=== PATIENT | female | born 1950 | race Caucasian/White ===

== ENCOUNTER 2020-06-06 06:24 | Inpatient (IN) ==
--- NOTE | 2020-05-18 12:20 | PAT Medication Instructions ---
Medication Instructions Date of Service May 18, 2020 Home Medications atorvastatin [Lipitor] 20 mg PO QPM benazepril-hydrochlorothiazide 1 tab PO QPM [Glucosamine Chondroitin] 2 cap PO QAM raloxifene 60 mg PO QPM STOP taking 2 weeks before surgery If surgery is within 2 weeks, stop taking as soon as possible. [Glucosamine Chondroitin] 2 cap PO QAM Take evening before surgery atorvastatin [Lipitor] 20 mg PO QPM benazepril-hydrochlorothiazide 1 tab PO QPM raloxifene 60 mg PO QPM NOTHING TO EAT OR DRINK AFTER MIDNIGHT Other Notes If you have any questions please call us at [phone] or [phone] or [phone] or [phone]
--- NOTE | 2020-05-18 14:05 | Anesthesiology Consultation ---
Date of Service May 18, 2020 Assessment & Plan (1) Encounter for pre-operative examination: COVID Status: As of 05/18 assessment, patient denies travel to endemic area, known exposure/sick contacts, or symptoms of COVID19. Patient instructed that they and their household members must follow strict social distancing guidelines, wear a mask in public and avoid travel for 14 days prior to surgery. Preoperative COVID19 [place] prior to surgery [place] [facility] [place] made aware to self-isolate as much as possible between COVID testing and surgery. Chart Review Chart Review: Acceptable Risk for Surgery (pending surgeon ordered PCP clearance 05/19) and Patient seen in Pre Admission Testing Teaching & Discussion Instructed NPO after midnight before surgery, except medications with 15 cc of water. Medication instructions provided according to the PAT guidelines. History Surgery Operation Date: 06/06/20 09:00 Proposed Procedures p Left Anterior Total Hip Arthroplasty - Carson Lazaro DO Height/Weight Height: 5 ft 10 in Weight: 72 kg Allergies Allergy/AdvReac Type Severity Reaction Status Date / Time No Known Allergies Allergy Unknown NONE Verified 05/11/20 09:35 Medications Home Medications Medication Instructions Recorded Confirmed Last Taken atorvastatin [Lipitor] 20 mg PO QPM 05/11/20 05/11/20 Unknown benazepril-hydrochlorothiazide 1 tab PO QPM 05/11/20 05/11/20 Unknown glucos sul [id number] 2 cap PO QAM 05/11/20 05/11/20 Unknown [Glucosamine Chondroitin] raloxifene 60 mg PO QPM 05/11/20 05/11/20 Unknown Past Medical History Medical History Hx of migraines Hyperlipidemia Hypertension Osteoarthritis Exercise / Class Metabolic Activity II 4-5 Yardwork/Stairs/Walk up hill (Denies Cp or SOB with 1 FOS) Past Family History Family History Mother Family history of diabetes mellitus Past Surgical History Surgical History H/O total hysterectomy History of colonoscopy History of right hip replacement 2011 Nausea and vomiting after administration of anesthetic agent Past Anesthesia History No Hx of Anesthesia Complications (other than PONV) and No Family Hx of Anesthesia Complications History of PONV No Hx of Motion Sickness and History of PONV Social History Smoking Status: Never smoker Do You Dip or Chew Tobacco: No Hx Alcohol Use: No Hx Substance Use: No Review of Systems Pt denies any recent chest pain, shortness of breath, palpitations, cough, fever, URI, or uncontrolled acid reflux. Physical Exam Vital Signs BP: 136/78 P: 67bpm SPO2: 99% RA T: 98.3 F R: 12 ENMT Mouth: + chipped teeth (back left filling fell out); no dental restorations and no loose teeth Thyromental Distance: > or= 3.5 Finger Breadths (3.5) Mallampati Class: I Neck normal visual inspection; neck extension not limited Respiratory normal respiratory effort Auscultation: lungs clear to auscultation bilaterally Cardiovascular Rate/Rhythm: regular rate and regular rhythm Heart Sounds: no murmur Extremities: no edema Testing Laboratory Results 05/18/20 13:53 05/18/20 13:53 PT 10.7 Seconds (9.0-12.0) 05/18/20 13:53 INR 1.0 (0.9-1.1) 05/18/20 13:53 APTT 28.7 Seconds (21.0-31.0) 05/18/20 13:53 Hemoglobin A1c 6.3 % (4.5-5.6) H 05/18/20 13:53 Urine Color Yellow 05/18/20 13:53 Urine Appearance Clear (Clear) 05/18/20 13:53 Urine pH 5.0 (4.5-7.5) 05/18/20 13:53 Ur Specific [place] 1.016 (1.000-1.030) 05/18/20 13:53 Urine Protein Negative (Negative) 05/18/20 13:53 Urine Glucose (UA) Negative (Negative) 05/18/20 13:53 Urine Ketones Negative (Negative) 05/18/20 13:53 Urine Nitrite Negative (Negative) 05/18/20 13:53 Ur Leukocyte Esterase Negative (Negative) 05/18/20 13:53 Blood Type O Positive 05/18/20 13:53 Antibody Screen NEGATIVE 05/18/20 13:53 Electrocardiogram Date: 05/18/20 Findings: + NSR @ (62bpm) No significant change from 2008 EKG. Chest X-Ray Date: 05/18/20 FINDINGS: Cardiomediastinal and hilar silhouettes are within normal limits. No pneumothorax, pleural effusion, airspace consolidation or overt pulmonary edema. Bones of the chest appear grossly intact. Mild convex left curvature of the lumbar spine. IMPRESSION: No acute process.
--- NOTE | 2020-05-18 14:09 | Electrocardiogram Report ---
Test Reason : Blood Pressure : / mmHG Vent. Rate : 062 BPM Atrial Rate : 062 BPM P-R Int : 152 ms QRS Dur : 092 ms QT Int : 404 ms P-R-T Axes : 071 060 068 degrees QTc Int : 410 ms Normal sinus rhythm Normal ECG When compared with ECG of 01-AUG-2009 13:53, No significant change was found Confirmed by Tyrone Contreras ([id number]) on 05/18/2020 2:09:03 PM Referred By: Carson Lazaro Confirmed By:Tyrone Contreras
[2020-05-18 14:27] LABS: Basophils # (auto) 0.04 K/uL (0-0.2); Basophils % (auto) 0.7 %; Eosinophils % (auto) 6.7 %; Hematocrit (blood only) 39.8 % (37-47); Hemoglobin 13.1 g/dL (12.0-16.0); Immature Granulocytes # (auto) 0.01 K/uL (0.00-0.02); Immature Granulocytes % (auto) 0.2 %; Lymphocytes % (auto) 26.8 %; Mean Corpuscular Hemoglobin 30.1 pg (25-34); Mean Corpuscular Hgb Conc 32.9 g/dL (32-36); Mean Corpuscular Volume 91.5 fL (80-100); Mean Platelet Volume 9.3 fL (7.4-10.4); Monocytes # (auto) 0.36 K/uL (0.11-0.59); Neutrophils # (auto) 3.57 K/uL (1.4-6.5); Neutrophils % (auto) 59.6 %; Platelet Count 443 K/uL (130-400); RDW Coefficient of Variation 13.8 % (11.5-14.5); RDW Standard Deviation 46.3 fL (36.4-46.3); Red Blood Count 4.35 M/uL (4.2-5.4); White Blood Count 5.98 K/uL (4.8-10.8)
[2020-05-18 14:39] LABS: Partial Thromboplastin Time 28.7 Seconds (21.0-31.0); Prothrombin Time 10.7 Seconds (9.0-12.0)
[2020-05-18 14:46] LABS: Estimated Average Glucose 134 mg/dl; Hemoglobin A1C 6.3 % (4.5-5.6)
--- NOTE | 2020-05-18 15:00 | XRay Report ---
XR chest Pre-admission PA/Lat HISTORY: 70 years-old Female pat preoperative exam. No acute chest complaints COMPARISON: Chest radiographs 08/01/2009 TECHNIQUE: PA and lateral views of the chest FINDINGS: Cardiomediastinal and hilar silhouettes are within normal limits. No pneumothorax, pleural effusion, airspace consolidation or overt pulmonary edema. Bones of the chest appear grossly intact. Mild conve x left curvature of the lumbar spine. IMPRESSION: No acute process. ACT 112: Negative or not required by law. The above report was generated using voice recognition software. It may contain grammatical, syntax o r spelling errors. Electronically signed by: Js Hodges M.D. 05/18/2020 2:58 PM
[2020-05-18 15:16] LABS: Appearance Urine Clear (Clear); Bilirubin Urine Negative (Negative); Blood Urine Negative (Negative); Color Urine Yellow; Glucose Urine UA Negative (Negative); Ketones Urine Negative (Negative); Leukocyte Esterase Urine Negative (Negative); Nitrite Urine Negative (Negative); Protein Urine Negative (Negative); Specific Gravity Urine 1.016 (1.000-1.030); Urobilinogen Urine Negative (Negative)
[2020-05-18 15:38] LABS: Albumin Level 3.9 gm/dl (3.4-5.0); BUN Creatinine Ratio 14.5 (10-20); Calcium 9.6 mg/dl (8.5-10.1); Creatinine Clr Calc Pharmacy 60.7 ml/min; Est GFR (African American) 70.4; Est GFR (Non-African American) 60.8; Potassium 4.2 mmol/L (3.5-5.1)
--- NOTE | 2020-06-04 21:28 | History & Physical Report ---
Date of Service June 06, 2020 Assessment & Plan (1) Degenerative joint disease of left hip: I have indicated the patient for left anterior total hip replacement. The risks, benefits and complications of surgery were explained to the patient which include but not limited to infection, acute blood loss, DVT/PE, injury to nerves, vessels, bone, soft tissue, arthrofibrosis, chronic pain, failure of the prosthesis, hip dislocation, leg length discrepancy, need for additional surgery, cardiac and pulmonary events and . The patient wished to proceed with surgery and informed consent was obtained at this time. We will plan for ASA BID post-operatively for DVT prophylaxis. Upon discharge the patient will be discharged home with home health services. Appropriate clearances by PCP were obtained. History of Present Illness Chief Complaint: Left hip pain/DJD Primary Care Provider: Chilango Bhandari The patient is a 70 year old female who presents with complaints of severe left hip pain and DJD. The patient has failed outpatient conservative treatments to this point which included NSAIDs, IA corticosteroid injection, home exer cise/walking program. The patient's pain and limited function have progressed to the point where they severely hinder their activities of daily living and they no longer tolerate exercise programs. They are requesting to proceed with total hip replacement surgery. Allergies Allergy/AdvReac Type Severity Reaction Status Date / Time No Known Allergies Allergy Unknown NONE Verified 06/06/20 06:53 Home Medications Home Medications Medication Instructions Recorded Confirmed Type atorvastatin [Lipitor] 20 mg PO QPM 05/11/20 06/06/20 History benazepril-hydrochlorothiazide 1 tab PO QPM 05/11/20 06/06/20 History glucos sul [id number]-Mn 2 cap PO QAM 05/11/20 06/06/20 History [Glucosamine Chondroitin] raloxifene [Evista] 60 mg PO QPM 05/11/20 06/06/20 History Multi Vitamin 1 tab PO DAILY 06/06/20 06/06/20 History acetaminophen [Tylenol Extra 500 mg PO QID PRN 06/06/20 06/06/20 History Strength] Past Med/Surg History Medical History Hx of migraines Hyperlipidemia Hypertension Osteoarthritis Surgical History H/O total hysterectomy History of colonoscopy History of right hip replacement 2011 Nausea and vomiting after administration of anesthetic agent Family History Mother Family history of diabetes mellitus Social History Smoking Status: Never smoker Second Hand Exposure: No; Do You Dip or Chew Tobacco: No; Tobacco Cessation Education Requested by Patient: No Hx Alcohol Use: No Hx Substance Use: No Preferred Language: Lao Licensed Physical Therapist Assistant Required: No Beliefs That Will Affect Care: None Current Living Situation: Family Current Living Situation Comment: AND FATHER Feels Safe at Home: Yes Safety Concerns: Feels Safe At This Time Review of Systems Review of Systems: All systems reviewed & are unremarkable except as noted in HPI & below Constitutional: as per Subjective / HPI Physical Exam 2 Physical Exam: LLE NVSI +EHL/FHL/TA/GS SILT grossly, +2 DP pulse, compartments soft NT, limited painful ROM of the hip, antalgic gait. Constitutional: WD/WN, vitals as above Eyes: PERRL, conjunctivae normal, anicteric sclerae ENMT: external ear and nose normal, oropharynx normal Neck: trachea midline, no thyromegaly Respiratory: normal respiratory effort, lungs clear to auscultation Cardiovascular: RRR, no murmur, no edema Gastrointestinal (Abdomen): normal bowel sounds, soft, nontender, no hepatosplenomegaly Musculoskeletal: no cyanosis or clubbing, extremities motor strength 5/5 Skin: no rashes, warm and dry Neurologic: patellar DTR's 2+ bilat, sensation intact Psychiatric: A+Ox3, euthymic affect Lymphatic: no cervical or axillary lymphadenopathy Results & Data Results & Data ([facility]) Diagnostic Findings Multiple views of the hip demonstrates severe DJD with complete loss of the joint space. +osteophytes, +sclerosis, +subchondral cysts.
[~2020-06-06 06:24] MED LIST: ACETAMINOPHEN 500 MG TAB PO SCH; CEFAZOLIN 1000MG 1,000 MG/7.5 ML SYR IV SCH; CeleBREX 200 MG CAP PO SCH; FAMOTIDINE 20 MG TAB PO SCH; GABAPENTIN 300 MG CAP PO SCH; LR 500ML BOLUS, THEN 15ML/HR IV SCH; METOCLOPRAMIDE HCL 10 MG TABLET PO SCH; ROPIVACAINE 0.5% HCL/PF 150 MG, BUPIVACAINE 0.5% MPF 30 ML, EPINEPHrine 30MG/30ML (OR U... INSTIL SCH; TRANEXAMIC ACID 1,000 MG **IV Intra-op IV SCH; TRANEXAMIC ACID 1,000 MG **IV Pre-op IV SCH; dexAMETHasone 4 MG TAB PO SCH
[2020-06-06] MEDS ORDERED: BUPIVACAINE 0.5 % 5 MG/1 ML PF 10ML VIAL ONE (06:31)
--- NOTE | 2020-06-06 09:24 | History & Physical Bridge Note ---
Date of Service June 06, 2020 History & Physical Bridge Note I have examined the patient, reviewed the History & Physical and in the interval since the performance of the History & Physical I have noted the following changes of clinical significance: no changes noted
[2020-06-06] MEDS ORDERED: BACITRACIN INJ 50,000 UNIT VIAL ONE (09:37)
[2020-06-06] MEDS ORDERED: ORTHO JOINT ANESTHETIC ONE (09:37)
[2020-06-06] MEDS ORDERED: ATROPINE SULFATE 0.1 MG/ML 10ML SYR IV PRN (09:40)
[2020-06-06] MEDS ORDERED: ePHEDrine sulfate 50 MG/ML AMP IV PRN (09:40)
[2020-06-06] MEDS ORDERED: MIDAZOLAM HCL 1 MG/ML 2ML VIAL ONE ×2 (09:46→10:18)
--- NOTE | 2020-06-06 11:35 | Post Operative Brief Note ---
Immediate Post Op Note v1 Date of Surgery June 06, 2020 Pre & Post Diagnosis Operation Date: 06/06/20 09:20 Pre-Op Diagnosis: Unilateral Primary Osteoarthritis, Left Hip Post-Op Diagnosis: Unilateral Primary Osteoarthritis, Left Hip I identified the patient and participated in the time-out.: Yes Procedure Operation Date: 06/06/20 09:20 Actual Procedures p Left Anterior Total Hip Arthroplasty(Left) - Carson Lazaro DO Surgeon Carson Lazaro DO Measurement Advisor Kenneth Montano Estimated Blood Loss 140 Findings Consistent with Post-Op Diagnosis Fluids 1100 cc LR Specimens Femoral head Anesthesia Type Spinal MAC Complications none Disposition Disposition: Recovery Room Overlapping Procedure I was present for: the critical portions of procedure. I was immediately available: during the entire case. Back up surgeon: was not required during procedure.
--- NOTE | 2020-06-06 11:37 | Operative Report ---
Post Operative Report Pre & Post Diagnosis Operation Date: 06/06/20 09:20 Pre-Op Diagnosis: Unilateral Primary Osteoarthritis, Left Hip Post-Op Diagnosis: Unilateral Primary Osteoarthritis, Left Hip I identified the patient and participated in the time-out.: Yes Procedure Operation Date: 06/06/20 09:20 Actual Procedures p Left Anterior Total Hip Arthroplasty(Left) - Carson Lazaro DO Surgeon Carson Lazaro DO Access Rep Kenneth Montano Estimated Blood Loss 140 Findings Consistent with Post-Op Diagnosis Specimens Femoral head Anesthesia Type Spinal MAC Complications none Disposition Disposition: Recovery Room Indications The patient is a 70-year-old female who presents with severe progressive left hip DJD who has failed outpatient conservative treatments. I indicated the patient for a total hip replacement and the risks and benefits were explained in detail which included but not limited to infection, bleeding, blood clot, damage to surrounding bone, nerves, vessels, soft tissue, hip dislocation, failure of the prosthesis, leg length discrepancy, need for additional surgery and . The patient agreed to proceed with replacement of the hip and informed consent was obtained. Appropriate clearances were obtained. Description of Procedure COMPONENTS USED: [employer] hip system: Acetabulum size 54, femur size 6 offset, femoral head 36+0, liner [id number], acetabular screw 25 mm x 1. DESCRIPTION OF PROCEDURE: Following satisfactory spinal anesthesia, the patient was placed supine on the OR table. The right leg was placed in the well leg vergara and the left leg in the traction device. The left leg was prepared with ChloraPrep and draped sterilely. A surgical timeout was performed, patient identified and site fidel verified. Appropriate antibiotics were given. A standard anterior approach in the interval between the sartorius and tensor muscles was performed. Dissection was carried down through subcutaneous tissues. Electrocautery was utilized for hemostasis. Circumflex femoral vessels were identified, tied and ligated. The anterior capsular fat pad was removed and the capsulotomy was performed revealing the arthritic femoral neck and head. A femoral neck cut was made with reciprocating saw and the bone fragments removed. The acetabular self-retraining retractor was placed. Acetabular reaming was completed under fluoroscopic guidance, a 54 shell was impacted into an anatomic position and secured with a dome screw. Local anesthetic was placed and following irrigation, the polyethylene liner was placed. The femur was placed into position of external rotation, extension and adduction. Femoral canal was prepared up to the size 6 high offset. Trial reduction with a 36+0 neck length head showed good soft tissue tension, leg lengths restored, and good fit and fill of the proximal canal using fluoroscopic landmarks. The hip was dislocated. The trial component was removed. The final implant was placed. The hip was irrigated with sterile saline solution and reduced. A Betadine soak was performed. After 3 minutes, the hip was once more irrigated with copious sterile saline solution with bacitracin. Celi-incisional soft tissue was injected utilizing [place] [employer] which includes a combination of Ropivicaine 0.5% 150mg, Bupivicaine 0.5%/Epinephrine 1:200,000 30ml, Toradol 30mg, Dexamethasone 4mg, Ketamine 10mg, Clonidine 100mcg and NSS 30ml solution. The capsule was then closed with 1-0 Vicryl interrupted figure of eight sutures. The fascia was closed with a running suture of #1 Vicryl, the subcutaneous tissues with 2-0 Vicryl and the skin with a running subcuticular stitch of 3-0 V-Loc. Dermabond prineo and a dry dressing were applied. The patient tolerated the procedure well and was transported to PACU in stable condition. Due to the complex nature of the procedure, the entire surgery was performed with the operational assistance of Kenneth Montano PA-C. The school psychologist assistant, under direct supervision, was involved in the actual performance of all aspects of the surgical procedure including patient positioning, hemostasis, tissue retraction, instrument management and wound closure. I attest to the content of the Intraoperative Record and any orders documented therein. Any exceptions are noted below.
--- NOTE | 2020-06-06 11:47 | Fluoroscopy Report ---
FL hip LT 1V CLINICAL HISTORY: LT ANTERIOR TOTALhip replacement COMPARISON STUDY: None FLUOROSCOPY TIME: 34 seconds NUMBER OF FLUOROSCOPIC IMAGES: 2 FINDINGS: Image intensifier support was utilized for left hip arthroplasty. IMPRESSION: Image intensifier support was utilized for a total left hip arthroplasty. ACT 112: Negative or not required by law. The above report was generated using voice recognition software. It may contain grammatical, syntax or spelling errors. Electronically signed by: Rich Hernandez M.D. 06/06/2020 11:45 AM
--- NOTE | 2020-06-06 12:11 | XRay Report ---
SINGLE VIEW PELVIS; SINGLE VIEW LEFT HIP CLINICAL HISTORY: Postoperative examination. FINDINGS: An AP portable view of the hips and pelvis with a crosstable lateral portable view of the l eft hip are obtained. A bipolar left hip arthroplasty is in near-anatomic alignment. A single cortic al lag screw transfixes the acetabular cup. No acute fracture is identified. There are expected posto perative changes overlying the left hip including skin clips, subcutaneous gas, a surgical drain, and soft tissue swelling. A right hip arthroplasty is also in place. IMPRESSION: Expected postoperative findings status post left hip arthroplasty. No acute fracture is s een. ACT 112: Negative or not required by law. Electronically signed by: Fabián Rizvi M.D. 06/06/2020 12:10 PM
--- NOTE | 2020-06-06 12:23 | Anesthesiology Progress Note ---
Date of Service June 06, 2020 Anesthesia Post Procedure Vital Signs Vital Signs: Temp Pulse Pulse Resp BP BP Pulse Ox 06/06/20 12:10 36.4 C L 71 18 127/60 99 06/06/20 12:00 72 15 128/69 100 06/06/20 11:50 36.1 C L 86 16 116/78 100 06/06/20 09:35 81 16 155/73 H 97 06/06/20 07:16 37.1 C 82 16 148/72 H 98 Pain Intensity Left Hip: Pain Intensity: 0 Transfer of Care Handoff Completed per policy Notes Mental Status: alert / awake / arousable and participated in evaluation Patient Amnestic to Procedure: Yes Nausea / Vomiting: adequately controlled Pain: adequately controlled Airway Patency, RR, SpO2: stable & adequate BP & HR: stable & adequate Hydration State: stable & adequate Neuraxial Anesthesia: was administered and sensory block is resolving Anesthetic Complications: no major complications apparent
[2020-06-06] MEDS ORDERED: OXYCODONE HCL IR 5 MG TAB (IMMEDIATE RELEASE) PO PRN (12:48)
[2020-06-06] MEDS ORDERED: NALOXONE HCL 0.4 MG/1 ML VIAL/CARP IV PRN (12:48)
[2020-06-06] MEDS ORDERED: bisacodyL 10 MG SUPP PR PRN (12:48)
[2020-06-06] MEDS ORDERED: ONDANSETRON INJ 2 MG/ML 2 ML VIAL IV PRN (12:48)
[2020-06-06] MEDS ORDERED: METOCLOPRAMIDE HCL INJ 5 MG/ML 2 ML VIAL IV PRN (12:48)
[2020-06-06] MEDS ORDERED: MAGNESIUM HYDROXIDE SUSP 30 ML UDC PO PRN (12:48)
[2020-06-06] MEDS ORDERED: HYDROmorphone INJ 0.5 MG/0.5 ML SYR IV PRN (12:48)
[2020-06-06] MEDS: SODIUM CHLORIDE 0.9% 1000ML 1,000 ML IV SCH ×2 (13:58→22:10)
[2020-06-06] MEDS: ACETAMINOPHEN 500 MG TAB PO SCH ×2 (14:03→22:08)
[2020-06-06] MEDS: KETOROLAC TROMETHAMINE 15 MG/ML VIAL IV SCH ×2 (14:04→20:05)
[2020-06-06] MEDS: DOCUSATE SODIUM 100 MG CAP PO SCH (18:12)
[2020-06-06] MEDS: CEFAZOLIN 2000MG 2,000 MG/15 ML SYR IV SCH (18:12)
--- NOTE | 2020-06-06 19:23 | Orthopedic Progress Note ---
Date of Service June 06, 2020 Assessment & Plan (1) Degenerative joint disease of left hip: s/p Left anterior SEPIDEH -ancef x 24 -DVT ppx: SCDs, TEDs, 81mg ASA BID -WBAT RLE -PT/OT -PO XR demonstrates a well aligned well fixed prothesis without fracture/dislocation -am labs -DC planning Admission and Anticipated Discharge Date Admission Date: June 06, 2020 Subjective Post Operative Progress Note Patient seen sitting up in bed, comfortable, denies complaints, pain well controlled, no acute issues. Review of Systems Review of Systems: All systems reviewed & are unremarkable except as noted in HPI & below Constitutional: as per Subjective / HPI Physical Exam Physical Exam: LLE NVSI +EHL/FHL/TA/GS SILT grossly, +2 DP pulse, compartments soft NT, dressing cdi. Constitutional: WD/WN, vitals as above Results & Data ([facility]) Vital Signs (Past 12 Hours) Vital Signs Temp Pulse Pulse Resp BP BP Pulse Ox 06/06/20 19:07 36.5 C 78 16 102/61 92 06/06/20 15:25 36.4 C L 81 16 108/67 94 06/06/20 15:12 36.4 C L 75 18 113/69 94 06/06/20 14:35 36.6 C 75 16 105/62 95 06/06/20 13:40 76 16 121/77 100 06/06/20 13:03 73 16 113/70 99 06/06/20 12:35 36.5 C 75 14 114/66 99 06/06/20 12:20 73 21 130/73 98 06/06/20 12:10 36.4 C L 71 18 127/60 99 06/06/20 12:00 72 15 128/69 100 06/06/20 11:50 36.1 C L 86 16 116/78 100 06/06/20 09:35 81 16 155/73 H 97
[2020-06-06] MEDS: RALOXIFENE HCL 60 MG TAB PO SCH ×2 (20:05→20:06)
[2020-06-06] MEDS ORDERED: SENNA 8.6 MG TAB PO SCH (21:00)
[2020-06-06] MEDS ORDERED: hydroCHLOROthiazide 25 MG TAB PO SCH (21:00)
[2020-06-06] MEDS ORDERED: ENALAPRIL MALEATE 5 MG TAB PO SCH (21:00)
[2020-06-06] MEDS ORDERED: ATORVASTATIN 20 MG TAB PO SCH (21:00)
[2020-06-07] MEDS: CEFAZOLIN 2000MG 2,000 MG/15 ML SYR IV SCH (01:51)
[2020-06-07] MEDS: KETOROLAC TROMETHAMINE 15 MG/ML VIAL IV SCH ×2 (01:52→08:15)
[2020-06-07] MEDS: ACETAMINOPHEN 500 MG TAB PO SCH ×2 (05:58→13:32)
[2020-06-07 06:09] LABS: Hematocrit (blood only) 34.1 % (37-47); Hemoglobin 11.5 g/dL (12.0-16.0); Immature Granulocytes # (auto) 0.03 K/uL (0.00-0.02); Immature Granulocytes % (auto) 0.2 %; Lymphocytes # (auto) 1.32 K/uL (1.2-3.4); Lymphocytes % (auto) 8.6 %; Mean Corpuscular Hemoglobin 30.5 pg (25-34); Mean Corpuscular Hgb Conc 33.7 g/dL (32-36); Mean Corpuscular Volume 90.5 fL (80-100); Mean Platelet Volume 9.4 fL (7.4-10.4); Monocytes # (auto) 0.82 K/uL (0.11-0.59); Monocytes % (auto) 5.3 %; Neutrophils # (auto) 13.21 K/uL (1.4-6.5); Neutrophils % (auto) 85.9 %; Platelet Count 384 K/uL (130-400); RDW Coefficient of Variation 13.4 % (11.5-14.5); RDW Standard Deviation 43.8 fL (36.4-46.3); Red Blood Count 3.77 M/uL (4.2-5.4); White Blood Count 15.38 K/uL (4.8-10.8)
[2020-06-07 06:41] LABS: BUN Creatinine Ratio 22.5 (10-20); Calcium 8.9 mg/dl (8.5-10.1); Creatinine Clr Calc Pharmacy 48.9 ml/min; Est GFR (African American) 54.3; Est GFR (Non-African American) 46.9; Potassium 3.6 mmol/L (3.5-5.1)
[2020-06-07] MEDS: DOCUSATE SODIUM 100 MG CAP PO SCH (08:15)
--- NOTE | 2020-06-07 08:44 | Orthopedic Progress Note ---
Date of Service June 07, 2020 Assessment & Plan (1) Degenerative joint disease of left hip: s/p Left anterior SEPIDEH -Leukocytosis-currently asymptomatic. Likely due to surgical stress and preoperative steroids. -ancef x 24, then DC -DVT ppx: SCDs, TEDs, 81mg ASA BID -WBAT RLE -PT/OT -am labs as noted -DC planning-planning for discharge to home today if progressing well with her physical therapy. Admission and Anticipated Discharge Date Admission Date: June 06, 2020 Supervising Physician Co-Signing Physician Notes Patient seen and examined, agree with above assessment and plan. Subjective Postop day 1 Patient currently sitting up in her chair at the bedside eating breakfast. No complaints this morning. Pain is controlled. Denies shortness of breath, chest pain, lightheadedness. Physical Exam Physical Exam: Dressings are clean, dry, and intact. Calves are soft and nontender. Neurovascular is intact. Toes are mobile. She has good dorsiflexion and plantarflexion of the left foot. Leg lengths appear equal. Results & Data ([facility]) Vital Signs (Past 12 Hours) Vital Signs Temp Pulse Resp BP Pulse Ox 06/07/20 07:28 36.5 C 62 16 122/85 95 06/07/20 07:17 36.4 C L 67 16 106/67 95 06/07/20 03:25 36.5 C 68 16 121/65 95 06/06/20 23:32 36.5 C 70 20 105/62 97 Laboratory Results Laboratory Results WBC 15.38 K/uL (4.8-10.8) H 06/07/20 05:11 RBC 3.77 M/uL (4.2-5.4) L 06/07/20 05:11 Hgb 11.5 g/dL (12.0-16.0) L 06/07/20 05:11 Hct 34.1 % (37-47) L 06/07/20 05:11 MCV 90.5 fL (80-100) 06/07/20 05:11 MCH 30.5 pg (25-34) 06/07/20 05:11 MCHC 33.7 g/dL (32-36) 06/07/20 05:11 RDW Std Deviation 43.8 fL (36.4-46.3) 06/07/20 05:11 RDW Coeff of Martell 13.4 % (11.5-14.5) 06/07/20 05:11 Plt Count 384 K/uL (130-400) 06/07/20 05:11 MPV 9.4 fL (7.4-10.4) 06/07/20 05:11 Immature Gran % (Auto) 0.2 % 06/07/20 05:11 Neut % (Auto) 85.9 % 06/07/20 05:11 Lymph % (Auto) 8.6 % 06/07/20 05:11 [place] % (Auto) 5.3 % 06/07/20 05:11 Eos % (Auto) 0.0 % 06/07/20 05:11 Baso % (Auto) 0.0 % 06/07/20 05:11 Neut # (Auto) 13.21 K/uL (1.4-6.5) H 06/07/20 05:11 Lymph # (Auto) 1.32 K/uL (1.2-3.4) 06/07/20 05:11 [place] # (Auto) 0.82 K/uL (0.11-0.59) H 06/07/20 05:11 Eos # (Auto) 0.00 K/uL (0-0.5) 06/07/20 05:11 Baso # (Auto) 0.00 K/uL (0-0.2) 06/07/20 05:11 Immature Gran # (Auto) 0.03 K/uL (0.00-0.02) H 06/07/20 05:11 PT 10.7 Seconds (9.0-12.0) 05/18/20 13:53 INR 1.0 (0.9-1.1) 05/18/20 13:53 APTT 28.7 Seconds (21.0-31.0) 05/18/20 13:53 PTT Ratio 1.0 05/18/20 13:53 Sodium 139 mmol/L (136-145) 06/07/20 05:11 Potassium 3.6 mmol/L (3.5-5.1) 06/07/20 05:11 Chloride 107 mmol/L (98-107) 06/07/20 05:11 Carbon Dioxide 24 mmol/L (21-32) 06/07/20 05:11 Anion Gap 8.0 (3-11) 06/07/20 05:11 BUN 27 mg/dl (7-18) H 06/07/20 05:11 Creatinine 1.19 mg/dl (0.6-1.2) 06/07/20 05:11 Est Cr Clr Drug Dosing 48.9 ml/min 06/07/20 05:11 Est GFR ( Amer) 54.3 06/07/20 05:11 Est GFR (Non-Af Amer) 46.9 06/07/20 05:11 BUN/Creatinine Ratio 22.5 (10-20) H 06/07/20 05:11 Glucose 163 mg/dl (70-99) H 06/07/20 05:11 Estimat Average Glucose 134 mg/dl 05/18/20 13:53 Hemoglobin A1c 6.3 % (4.5-5.6) H 05/18/20 13:53 Calcium 8.9 mg/dl (8.5-10.1) 06/07/20 05:11 Albumin 3.9 gm/dl (3.4-5.0) 05/18/20 13:53 Urine Color Yellow 05/18/20 13:53 Urine Appearance Clear (Clear) 05/18/20 13:53 Urine pH 5.0 (4.5-7.5) 05/18/20 13:53 Ur Specific [place] 1.016 (1.000-1.030) 05/18/20 13:53 Urine Protein Negative (Negative) 05/18/20 13:53 Urine Glucose (UA) Negative (Negative) 05/18/20 13:53 Urine Ketones Negative (Negative) 05/18/20 13:53 Urine Blood Negative (Negative) 05/18/20 13:53 Urine Nitrite Negative (Negative) 05/18/20 13:53 Urine Bilirubin Negative (Negative) 05/18/20 13:53 Urine Urobilinogen Negative (Negative) 05/18/20 13:53 Ur Leukocyte Esterase Negative (Negative) 05/18/20 13:53 Blood Type O Positive 05/18/20 13:53 Antibody Screen NEGATIVE 05/18/20 13:53
[2020-06-07] MEDS ORDERED: ENALAPRIL MALEATE 5 MG TAB PO SCH (09:00)
[2020-06-07] MEDS ORDERED: MULTIVITAMIN TAB PO SCH (09:00)
[2020-06-07] MEDS ORDERED: ASPIRIN 325 MG ECTAB PO SCH (09:00)
--- NOTE | 2020-06-07 10:29 | Orthopedic Progress Note ---
Date of Service June 07, 2020 Assessment & Plan (1) Degenerative joint disease of left hip: s/p Left anterior SEPIDEH POD#1 -DVT ppx: SCDs, TEDs, 81mg ASA BID -WBAT RLE -PT/OT -am labs - as above, hgb 11.5 -DC planning: home with Admission and Anticipated Discharge Date Admission Date: June 06, 2020 Subjective Post Operative Progress Note Patient seen sitting in chair and bedside, comfortable, denies complaints, pain well controlled, no acute issues. Denies F/C/N/V/SOB/CP. Review of Systems Review of Systems: All systems reviewed & are unremarkable except as noted in HPI & below Constitutional: as per Subjective / HPI Physical Exam Physical Exam: LLE NVSI +EHL/FHL/TA/GS SILT grossly, +2 DP pulse, compartments soft NT, dressing cdi. Constitutional: WD/WN, vitals as above Results & Data ([facility]) Vital Signs (Past 12 Hours) Vital Signs Temp Pulse Resp BP Pulse Ox 06/07/20 07:28 36.5 C 62 16 122/85 95 06/07/20 07:17 36.4 C L 67 16 106/67 95 06/07/20 03:25 36.5 C 68 16 121/65 95 06/06/20 23:32 36.5 C 70 20 105/62 97 Laboratory Results 06/07/20 06/07/20 Range/Units 05:11 05:11 WBC 15.38 H (4.8-10.8) K/uL RBC 3.77 L (4.2-5.4) M/uL Hgb 11.5 L (12.0-16.0) g/dL Hct 34.1 L (37-47) % MCV 90.5 (80-100) fL MCH 30.5 (25-34) pg MCHC 33.7 (32-36) g/dL RDW Std Deviation 43.8 (36.4-46.3) fL RDW Coeff of Martell 13.4 (11.5-14.5) % Plt Count 384 (130-400) K/uL MPV 9.4 (7.4-10.4) fL Immature Gran % (Auto) 0.2 % Neut % (Auto) 85.9 % Lymph % (Auto) 8.6 % [place]ette % (Auto) 5.3 % Eos % (Auto) 0.0 % Baso % (Auto) 0.0 % Neut # (Auto) 13.21 H (1.4-6.5) K/uL Lymph # (Auto) 1.32 (1.2-3.4) K/uL Marinette # (Auto) 0.82 H (0.11-0.59) K/uL Eos # (Auto) 0.00 (0-0.5) K/uL Baso # (Auto) 0.00 (0-0.2) K/uL Immature Gran # (Auto) 0.03 H (0.00-0.02) K/uL Sodium 139 (136-145) mmol/L Potassium 3.6 (3.5-5.1) mmol/L Chloride 107 (98-107) mmol/L Carbon Dioxide 24 (21-32) mmol/L Anion Gap 8.0 (3-11) BUN 27 H (7-18) mg/dl Creatinine 1.19 (0.6-1.2) mg/dl Est Cr Clr Drug Dosing 48.9 ml/min Est GFR ( Amer) 54.3 Est GFR (Non-Af Amer) 46.9 BUN/Creatinine Ratio 22.5 H (10-20) Glucose 163 H (70-99) mg/dl Calcium 8.9 (8.5-10.1) mg/dl
--- NOTE | 2020-06-07 20:58 | Discharge Summary ---
Date of Service June 07, 2020 Admission HPI Per Admitting Provider The patient is a 70 year old female who presents with complaints of severe left hip pain and DJD. The patient has failed outpatient conservative treatments to this point which included NSAIDs, IA corticosteroid injection, home exercise/walking program. The patient's pain and limited function have progressed to the point where they severely hinder their activities of daily living and they no longer tolerate exercise programs. They are requesting to proceed with total hip replacement surgery. Principal Diagnosis Left anterior total hip replacement -Left hip DJD Discharge Exam LLE NVSI +EHL/FHL/TA/GS SILT grossly, +2 DP pulse, compartments soft NT, dressing cdi. Constitutional WD/WN, vitals as above Discharge Data Allergies Allergy/AdvReac Type Severity Reaction Status Date / Time No Known Allergies Allergy Unknown NONE Verified 06/06/20 06:53 Consultations 06/07/20 08:00 Consult Case Management - Discharge Planning Routine Procedures Performed Operation Date: 06/06/20 09:20 Actual Procedures p Left Anterior Total Hip Arthroplasty(Left) - Carson Lazaro DO Ordered Studies 06/06/20 09:20 FL fluoroscopy <1hr Routine FL hip LT 1V Routine Hospital Course (1) Degenerative joint disease of left hip: The patient is a 70 -year-old female who presents with long standing history of severe left hip DJD and failed outpatient conservative treatments. The patient's symptoms have progressed to the point where it has been difficult to perform even normal activities of daily living. I indicated the patient for a left anterior total hip arthroplasty, the risks, benefits and complications of the procedure include but not limited to infection, bleeding, damage to bone, nerves, vessels, surrounding soft tissue, may develop blood clots, loss of function, leg length discrepancy, dislocation, failure of the components, loosening of the components, the need for additional surgery and . The patient wished to proceed with surgery at this time and informed consent was obtained. Hospital Course: On 06/06/20 the patient was taken to the operating room, adequate anesthesia administered and underwent a left anterior total hip arthroplasty. The patient tolerated the procedure well and was taken to the PACU in stable condition. Post-operatively the patient was started on a DVT ppx medication and given appropriate IV antibiotics. Consults were placed to physical therapy, occupational therapy and case management. On POD#1, the patient did well overnight and their pain was well controlled. Labs were drawn and the Hgb was 81mg ASA BID. The patient progressed well with PT. Dressings were changed at this time and the incision was clean, dry and intact. The patients hospital stay was relatively uneventful and they were deemed stable by the orthopedic team and consultants to be discharged home with HH on 06/07/20. Discharge Instructions: Upon discharge the patient may weight bear as tolerates through their operative extremity. They were instructed to keep the incision clean and dry at all times. The patient may shower but should not submerge the incision, avoid bathing, pools and hot tubes. The patient was given a script for pain medication and should take as instructed. The patient was given a script for DVT ppx 81mg ASA BID and should take as directed. The patient was instructed to not drive or travel for long distances until cleared to do so. If the patient develops any symptoms of fevers, chills, nausea, vomiting, increased redness, swelling, pain or drainage from the surgical site, they should notify the office and/or proceed to the nearest emergency room. The patient should follow up in 10-14 days after surgery for their routine post-operative follow-up appointment and should call the office to confirm the date and time. s/p Left anterior SEPIDEH POD#1 -DVT ppx: SCDs, TEDs, 81mg ASA BID -WBAT RLE -PT/OT -am labs - as above, hgb 11.5 -DC planning: home with Total Time Total Time Spent Total Time Spent (In Minutes): 30 Discharge Plan Discharge Items Patient Disposition: Home - Home Health Services Reason For Visit: Unilateral Primary Osteoarthritis, Left Hip Discharge Diagnosis: Left anterior total hip replacement -Left hip DJD Condition on Discharge: Good Activity: Per Instructions section Lifting: Wait until after follow-up appointment Bathing: Keep incision dry Bathing Comment: No bathing, pools or hot tubs Sexual Activity: Wait until after follow-up appointment Exercise/Sports: Wait until after follow-up appointment Driving/Machine Use: No driving Weightbearing: Full weightbearing Non-emergency contact: Primary Care Provider and Surgeon Call non-emergency contact if: you have any medication questions, your symptoms worsen, your pain is not controlled, your pain is worsening, your pain is unusual for you, your pain is concerning for you, you have a fever, your temperature is above 101, your wound has increased redness, your wound has increased drainage and your wound pain has increased Follow-up/Referrals: Chilango Bhandari DO [Primary Care Provider] - Diet: Regular Addtl Attending Provider Instructions: ACTIVITY RECOMMENDATIONS: SELF CARE INSTRUCTIONS AFTER TOTAL HIP REPLACEMENT : Direct Anterior Approach Until the incision and soft tissues around your hip have healed, there is a possibility that the hip prosthesis could dislocate. A. Hip flexion ( Up & Down out of chair or steps ) may be difficult. This is normal. B. Numbness in front of the thigh is also normal for a few weeks. C. Use hand rails when walking on stairs. D. Wear low heeled shoes with non-slip soles. E. Be sure that your floors are free of things that could trip you - throw rugs, electrical cords, small objects. Avoid wet and waxed floors, especially with crutches and canes. F. Try to walk several times a day with rest periods between. G. Continue with all the exercises taught to you in the hospital. Again, make walking a part of your daily routine. SPECIAL CARE INSTRUCTIONS: VERY IMPORTANT TO READ AND REVIEW A. You may still be at risk for phlebitis and blood clots. 1. Wear surgical stockings (BELKYS hose) for 2 weeks after surgery to improve circulation and reduce swelling. 2. Take Aspirin 81mg twice daily for 4 weeks or as directed by your doctor. This is your blood thinner. 3. High risk patients may be prescribed a stronger blood thinner if necessary. 4. If you are on Coumadin normally, your family doctor/gummed tape press operator should monitor your blood work. Expect a phone call the day of or the day after bloodwork is drawn to adjust your dosage. B. You must take antibiotics before having dental work, bladder, bowel and other surgery. Your doctor will provide you with a permanent card to carry describing precautions. C. Call [facility] if you have a fever, redness or swelling around the incision, cloudy drainage from incision, or sudden increase in pain in your hip, not relieved by your regular pain medication. D. Please call the office at if you have any concerns or questions about your operation or recovery. * YOU MAY SHOWER, NO TUB BATHS UNTIL CLEARED BY YOUR DOCTOR. - Keep an extra close eye on the top portion of your incision. Be sure to keep clean & dry. * WEAR BELKYS HOSE 20 HOURS PER DAY FOR 2 WEEKS. * YOU MAY PROGRESS FROM A WALKER, TO A CANE, TO INDEPENDENT AT YOUR OWN PACE. * MOST PATIENTS WILL HAVE HOME NURSING FOR THERAPY. IF YOU DECIDE TO DO OUTPATIENT PHYSICAL THERAPY, PLEASE SCHEDULE THIS 3 TIMES PER WEEK. * DERMABOND Prineo- This is a mesh tape dressing that is covered with glue. It should remain in place until the incision is properly healed, usually 10-14 days. This dressing is designed to naturally slough off. You may trim the excess mesh tape as it peels off. Incision may be briefly wet in a shower. Dry immediately by blotting with a clean, dry towel. Do not bath or swim until instructed by your doctor. Do not scratch, rub, or pick at the dressing. Do not apply any topical ointments or lotions until dressing is completely removed and/or instructed by your doctor. There may be a small piece of suture material at one end of your incision. Do not pull or trim this. If it is bothersome or catching on clothing, you may cover it with a band-aid. If Tegaderm and white island dressing still intact may remove upon discharge and keep uncovered as long as incision is dried, Dermabond mesh to be kept in place. FOLLOW UP VISIT: If appointment is not already scheduled: Please call [facility] to make a follow-up appointment for 2 weeks after your surgery at . Pending Studies at Discharge: No Stand-Alone Forms: My [facility] [employer], Smoking Cessation Medications and DC Order Prescriptions: New celecoxib [Celebrex] 200 mg Capsule 200 mg PO BID PRN (Reason: pain/inflammation) Qty: 28 RF: 0 acetaminophen 500 mg Tablet 1,000 mg PO Q8 PRN (Reason: pain/fevers) Qty: 90 RF: 0 aspirin [Ecotrin] 325 mg Tablet,Delayed Release (Dr/Ec) 325 mg PO BID Qty: 56 RF: 0 oxycodone 5 mg Tablet 5 mg PO Q6H MDD 4 PRN (Reason: pain) Qty: 30 RF: 0 sennosides [Senokot] 8.6 mg Tablet 17.2 mg PO HS PRN (Reason: constipation) Qty: 28 RF: 0 Continued atorvastatin [Lipitor] 20 mg Tablet 20 mg PO QPM RF: 0 benazepril-hydrochlorothiazide 5-6.25 mg Tablet 1 tab PO QPM RF: 0 raloxifene [Evista] 60 mg Tablet 60 mg PO QPM RF: 0 Glucosamine Chondroitin 550-30-1 mg Capsule 2 cap PO QAM RF: 0 Multi Vitamin 1 tab PO DAILY RF: 0 Discontinued acetaminophen [Tylenol Extra Strength] 500 mg Tablet 500 mg PO QID PRN (Reason: Pain) RF: 0 Discharge Orders: Discharge Order (Routine); Ordered 06/07/20 Ordered By: Carson Bedolla/Other Patient Handouts: A1C Admission Data Admit Date/Time: 06/06/20 11:51 Attending Provider: Carson aLzaro Admit Provider: Carson Lazaro Primary Care Provider: Chilango Bhandari Other Providers: [facility] Other Interventions: Discharge Summary Assessment (RN) Last Done: 06/07/20 13:23 DC Date/Time DO NOT enter until pt leaves facility: 06/07/20 15:04
[2020-06-07] MEDS ORDERED: CeleBREX 200 MG CAP PO SCH (21:00)
== END 2020-06-07 15:04 | disposition home health service (06) | DRG 470 ==
LOC: ASU 06:24 → 3E 11:51